=== PATIENT | male | born 1960 | race Caucasian/White ===

== ENCOUNTER 2022-07-25 11:54 | Outpatient (CLI) | payer BC, SELFPAY | END 2022-07-25 11:55 | disposition home or self-care (01) | LOC: AMB 08-07 15:32 | PROVIDERS: Visit Provider Family Medicine | DX: R42 Dizziness and giddiness (principal); M79.604 Pain in right leg | CPT/HCPCS: A0425; A0427 ==

== ENCOUNTER 2022-07-25 12:23 | Emergency (ER) | payer BC, SELFPAY ==
[2022-07-25 12:28] VITALS: BP 135/109; PULSE 52; RESP 16; O2SAT 97; BMI 26.0
--- NOTE | 2022-07-25 12:57 | CRLHL7_ITS ---
For Patients: As a result of the Century Cures Act, medical imaging exams and procedure reports are released immediately into your electronic medical record. You may view this report before your referring provider. If you have questions, please contact your health care provider. Indication: Pain. Technique: Ultrasound examination of the right lower extremity deep venous system was performed. Grayscale, grayscale compression, color Doppler and spectral Doppler was performed including augmentation technique. The left common femoral vein was also studied Comparison: None Findings: The left common femoral vein appears normal. There is thrombus identified in the right popliteal vein. This is in the inferior popliteal vein and appears to be echogenic and eccentric probably representing chronic clot. This is not obstructive. The remainder of the right lower extremity deep venous system was normal of the posterior tibial veins were not well visualized. Impression: 1. Thrombus identified in the distal right popliteal vein. This appears to be chronic and nonocclusive. The remainder of the right lower extremity deep venous system appeared normal. 2. Mildly limited visualization of the right posterior tibial veins. 3. The left common femoral vein is patent Dictated by Ruddy Blanchard MD @ 07/25/2022 2:29:54 PM (Electronically Signed)
--- NOTE | 2022-07-25 13:13 | ED_ITS ---
HPI - General Adult General Date Seen: 07/25/22 Chief complaint: Extremity Pain/Injury, Lower Stated complaint: Work comp leg pain Time Seen by Provider: 07/25/22 12:41 Source: patient History of Present Illness HPI narrative: Patient is a 62-year-old male who presents by EMS for evaluation of pain in his anterior right lower leg. He reports that he went to work this morning feeling in his usual state of health. While at work, he developed gradual onset of pain in his moody area on the right. This became severe to the point that he developed nausea, diaphoresis, lightheadedness and ultimately suffered a syncopal event. EMS was called. They gave him fentanyl and route, and now he says the pain is completely gone. In talking with him more about his pain, says that he has had something a little bit like this in the past but it has been very mild. He has a history of multiple knee surgeries on that side, so he has had knee pain frequently, but this was not in his knee at all. He did not have any pain in his thigh at all although he did note a little bit of pain in his gluteal region. He says that it was very painful to walk, he could not leaned over and tie his shoe. He says that even touching that area lightly was severely painful. He did not note any redness or swelling at any time. He denies any recent injury. He denies any symptoms suggestive of claudication. He does not have any history of coronary artery disease, vascular disease of any kind. He does not have a history of diabetes. He reports that his general health is good. He does not smoke. Related Data Allergies Allergy/AdvReac Type Severity Reaction Status Date / Time No Known Drug Allergies Allergy Verified 07/25/22 15:51 Review of Systems Status of ROS: Reports: 10 or more systems reviewed and unremarkable except as noted in History and below [facility] Social History Smoking Status: Former smoker Do you use any of these nicotine containing products: None Second hand tobacco smoke exposure: Yes How often do you have a drink containing alcohol: 2-4 times a month How many standard drinks containing alcohol do you have on a typical day: 1 or 2 How often do you have six or more drinks on one occasion: Never AUDIT-C Alcohol total score: 2 Non-prescribed substance use: denies use service: No Exam Narrative: Exam Narrative: Vital signs as noted above. In general, an alert, well-appearing patient. Head: Normocephalic, atraumatic. Eyes: Pupils are equal reactive. Extraocular movements are full. Conjunctivae are normal. ENT: Mucous membranes are moist. Throat is normal. Neck: Supple without lymphadenopathy. Heart: Regular rate and rhythm. No murmur or rub. Lungs: Clear bilaterally. No increased work of breathing, crackles or wheezes. Abdomen: Soft and nontender. No organomegaly. Extremities: Well perfused. No edema. No calf tenderness. Pulses intact. Specifically, examination of the right lower extremity shows no swelling, edema, erythema. Nontender to palpation. Posterior tibial and dorsalis pedis pulses are easily palpable. Foot is well perfused. Neurologic: Patient is alert and oriented to person and place. Speech is fluent. Face is symmetric. Moves all extremities equally. Strength is 5 5 in bilateral lower extremities. Sensation is intact to light touch. Affect: Normal. Skin: Warm and dry. Well perfused. Const: Vital Signs, click to edit/add: Vital Signs - 24 hr 07/25/22 12:28 07/25/22 15:42 07/25/22 16:51 Pulse Rate [Pulse Oximeter] 52 L 98 55 L Respiratory Rate 16 18 Blood Pressure [Le ft Upper Arm] 135/109 H 146/86 H 130/82 Pulse Oximetry 97 98 Oxygen Delivery Me thod Room Air 07/25/22 16:52 Pulse Rate [Pulse Oximeter] 55 L Respiratory Rate 18 Blood Pressure [Le ft Upper Arm] 130/82 Pulse Oximetry Oxygen Delivery Me thod Documenting provider has reviewed patient's vital signs: yes Course Course Hospital Course: Diagnostic considerations include DVT, claudication, lumbar radiculopathy, muscl e spasm, cellulitis. His symptoms do not fit clearly into 1 specific category. There is no erythema or edema, symptoms are completely relieved with 1 dose of fentanyl by EMS. I do not think this represents anything infectious given his completely normal exam. Likewise, my suspicion of DVT is very low, but given that he had a syncopal episode I am going to do a Doppler to rule that out. With regard to his syncope, it does sound very much vasovagal, related to pain, but I did do an EKG and this shows a sinus bradycardia with a ventricular rate of 50. This is likely secondary to his active lifestyle. He does not have any ST segment changes. His QT corrected is 393 milliseconds. [place] is 156 milliseconds. No delta waves. I think his syncope is secondary to his leg pain and does not otherwise need worked up separately. Claudication likewise seems relatively unlikely given any previous history of leg pain with exertion. He is quite active. He has good pulses, and both extremities look very well perfused. Ultrasound of the right lower extremity is read by Radiology as interestingly showing evidence of old clot in the distal popliteal but no evidence of an acute clot. I discussed this with the patient. It does not require any treatment today, I do wonder if maybe this was a postoperative DVT that just was not particularly symptomatic for him. Discussed that he should certainly tell people in the future that he has a history of DVT, particularly if he has future surgeries. With regard to today's symptoms, I continue to have relatively low suspicion that his pain early was related to DVT. 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 He does not have symptoms of chest pain or shortness of breath, is not tachycardic or tachypneic, not hypoxic. I discussed with him that most conservative route would be to do a chest CT to rule this diagnosis out. We discussed the risks and benefits of that and ultimately he elected to proceed with chest CT. I did elect to do a CBC and metabolic panel as we needed to creatinine for the CT scan. I also did a troponin. Troponin does not appear to be recorded in the computer but in the log book is recorded at 0. His white blood cell count was a little elevated at 14, of uncertain significance at this point. He does not have anything clinically that looks like cellulitis. His metabolic panel was normal. CT of the chest by my review was negative. Final radiology report was likewise negative. At this time, pain continues to be largely absent. Etiology of his symptoms I think remains a little unclear. I have recommended that we just see how he does. If it is persistent or worsening at like him to follow up with primary care. I think this could have been muscular, perhaps radiculopathy. Claudication certainly less likely. If he has recurrence of acute severe pain, he can certainly return to the emergency department for re-evaluation. He is comfortable with that plan. Vital Signs Vital signs: Initial Vital Signs Temperature Source Temporal Artery Scan 07/25/22 12:28 Pulse Rate 52 L 07/25/22 12:28 Pulse Rhythm 07/25/22 12:28 Respiratory Rate 16 07/25/22 12:28 Blood Pressure 135/109 H 07/25/22 12:28 Blood Pressure Mean 117 07/25/22 12:28 Blood Pressure Position Supine 07/25/22 12:28 Pulse Oximetry 97 07/25/22 12:28 Oxygen Delivery Method 07/25/22 12:28 Vital Signs Pulse Rate 52 L 07/25/22 12:28 Respiratory Rate 16 07/25/22 12:28 Blood Pressure 135/109 H 07/25/22 12:28 Pulse Oximetry 97 07/25/22 12:28 Oxygen Delivery Method 07/25/22 12:28 Pulse Rate 55 L 07/25/22 16:52 Respiratory Rate 18 07/25/22 16:52 Blood Pressure 130/82 07/25/22 16:52 Pulse Oximetry 98 07/25/22 16:51 Oxygen Delivery Method 07/25/22 12:28 Medical Decision Making Lab Data Labs: Lab Results 07/25/22 07/25/22 Range/Units 14:13 14:13 WBC 14.37 H (4.50-11.00) K/uL RBC 4.99 (4.30-5.90) m/uL Hgb 15.7 (13.5-17.5) gm/dL Hct 46.2 (37.0-53.0) % MCV 93 (80-100) fL MCH 32 (26-34) pg MCHC 34 (32-36) gm/dL RDW Coeff of Mathew 12.9 (11.5-15.5) % Plt Count 191 (140-440) K/uL Neut % (Auto) 87.7 H (42.0-72.0) % Lymph % (Auto) 7.6 L (20-44) % [place] % (Auto) 4.1 (0.0-11.0) % Eos % (Auto) 0.2 (0.0-7.0) % Baso % (Auto) 0.3 (0.0-3.0) % Neut # (Auto) 12.60 H (1.7-7.0) K/uL Lymph # (Auto) 1.10 (0.90-2.90) K/uL [place] # (Auto) 0.60 (0.00-0.90) K/UL Eos # (Auto) 0.00 (0.00-0.50) K/uL Baso # (Auto) 0.00 (0.00-0.30) K/uL Abs Immat Gran (auto) 0.02 (0.00-0.30) K/uL Sodium 136 (135-149) mmol/L Potassium 4.0 (3.6-5.1) mmol/L Chloride 102 (96-114) mmol/L Carbon Dioxide 27 (20-32) mmol/L BUN 24 (7-30) mg/dL Creatinine 1.2 (0.5-1.5) mg/dL Estimated Creat Clear 71.85 Estimated GFR 69 ml/min Glucose 109 (60-115) mg/dL Calcium 9.0 (8.4-10.6) mg/dL Discharge Plan Discharge Clinical Impression: Acute leg pain, Syncope Patient Disposition: Home, Self-Care Condition: Improved Instructions: Syncope (ED), Leg Pain (ED) Additional Instructions: If pain is progressive or recurrent, follow up with your primary care doctor. If you have any further problems with passing out, you should be seen again either by her doctor in the ER. I would not expect that this would be a r ecurrent problem for you. Your chest CT is normal, there is no evidence of pulmonary embolism. The ultrasound of your leg shows evidence of old DVT in (blood clot), but no evidence of an acute clot that would require treatment. Nonetheless, you should list DVT in your medical history. Follow Up/Referrals: Provider,Not a Local [Primary Care Provider] - Stand Alone Forms: [employer] Instructions
--- NOTE | 2022-07-25 14:48 | CRLHL7_ITS ---
For Patients: As a result of the Century Cures Act, medical imaging exams and procedure reports are released immediately into your electronic medical record. You may view this report before your referring provider. If you have questions, please contact your health care provider. INDICATION: Chest pain. TECHNIQUE: CT chest PE was acquired with 95 cc Isovue 370 IV contrast. COMPARISON: None. FINDINGS: Heart and vasculature: Contrast opacification of the pulmonary arterial tree is adequate. No sign of pulmonary embolism. Heart size is normal. Thoracic aorta and pulmonary artery are normal in caliber. Lungs and pleura: No suspicious nodules or infiltrates. No pleural effusions, pleural thickening, or pneumothorax. Lymph nodes/mediastinum: No mediastinal, hilar, or axillary adenopathy. Chest wall: No masses. Upper abdomen: No acute or significant findings. Bones: Unremarkable for age. IMPRESSION: Negative CT of the chest. No pulmonary embolism and the lungs are clear. Please note that all CT scans at this facility use dose modulation, iterative reconstruction, and/or weight-based dosing when appropriate to reduce radiation dose to as low as reasonably achievable. Dictated by Jaydon Lam MD @ 07/25/2022 4:28:37 PM (Electronically Signed)
[2022-07-25 15:26] LABS: Basophils Percent Auto 0.3 % (0.0-3.0); Eosinophils Percent Auto 0.2 % (0.0-7.0); Hematocrit 46.2 % (37.0-53.0); Hemoglobin* 15.7 gm/dL (13.5-17.5); Immature Granulocytes Abs Auto 0.02 K/uL (0.00-0.30); Lymphocytes Percent Auto 7.6 % (20-44); Mean Corpuscular HGB Conc 34 gm/dL (32-36); Mean Corpuscular Hemoglobin 32 pg (26-34); Mean Corpuscular Volume 93 fL (80-100); Monocytes Percent Auto 4.1 % (0.0-11.0); Neutrophils Percent Auto 87.7 % (42.0-72.0); Platelet Count* 191 K/uL (140-440); RDW Coefficient of Variation % 12.9 % (11.5-15.5); Red Blood Count 4.99 m/uL (4.30-5.90); White Blood Count* 14.37 K/uL (4.50-11.00)
[2022-07-25 15:30] LABS: Chloride* 102 mmol/L (96-114); Sodium* 136 mmol/L (135-149)
[2022-07-25 15:33] LABS: Blood Urea Nitrogen* 24 mg/dL (7-30); Carbon Dioxide* 27 mmol/L (20-32); Creatinine* 1.2 mg/dL (0.5-1.5); Est. Creatinine Clearance* 71.85; Estimated Glomerular Filt Rate 69 ml/min; Glucose* 109 mg/dL (60-115)
[2022-07-25 15:38] LABS: Slide Review Reflex No
[2022-07-25 15:42] VITALS: BP 146/86; PULSE 98
[2022-07-25 16:51] VITALS: BP 130/82; PULSE 55; RESP 18; O2SAT 98
[2022-07-25 16:52] VITALS: BP 130/82; PULSE 55; RESP 18
== END 2022-07-25 16:54 | disposition home or self-care (01) ==
PROVIDERS: Emergency Provider Emergency Medicine
DX: M79.661 Pain in right lower leg (principal); R55 Syncope and collapse
CPT/HCPCS: 36415; 71260; 80048; 84484; 85025; 93005; 93971; 99284; 99285; Q9967

== ENCOUNTER 2025-05-27 11:07 | Outpatient (CLI) | payer BC, SELFPAY | END 2025-05-27 11:08 | disposition home or self-care (01) | PROVIDERS: Visit Provider Family Medicine | DX: Z00.00 Encounter for general adult medical examination without abnormal findings (principal); E78.2 Mixed hyperlipidemia; E55.9 Vitamin D deficiency, unspecified; Z12.5 Encounter for screening for malignant neoplasm of prostate | CPT/HCPCS: 80053; 80061; 82306; G0103 ==